=== PATIENT | female | born 1975 | race Caucasian/White ===

== ENCOUNTER 2023-07-02 20:46 | Inpatient (IN) | payer OTHER ==
[~2023-07-02] VITALS: Ht 175.3 cm; Wt 172.4 kg
[2023-07-02 20:50] VITALS: BP 169/89; PULSE 115; RESP 17; TEMP 97.9; O2SAT 98
[2023-07-02] MEDS ORDERED: cefTRIAXone 1,000 MG in DEXT 5% MINI-BAG PLUS 50 ML IV ONE (23:05)
[2023-07-02] MEDS ORDERED: NACL 0.9% 1,000 ML IV SCH (23:05)
[2023-07-02] MEDS ORDERED: KETOROLAC 30 MG/ML VIAL IVP ONE (23:10)
[2023-07-02] MEDS ORDERED: cefTRIAXone 1,000 MG VIAL ONE (23:42)
[2023-07-02 23:57] LABS: BASOPHILS # (AUTO) 0.1 K/uL (0.00-0.22); BASOPHILS % (AUTO) 0.6 % (0.0-2.0); EOSINOPHILS % (AUTO) 0.2 % (0.0-4.0); HEMATOCRIT 44.2 % (36-48); HEMOGLOBIN 15.1 g/dL (12.0-16.0); LYMPHOCYTES # (AUTO) 1.9 K/uL (2.5-16.5); LYMPHOCYTES % (AUTO) 10.5 % (20.5-51.1); MEAN CORPUSCULAR HEMOGLOBIN 29 pg (27-31); MEAN CORPUSCULAR HGB CONC 34 g/dL (33-37); MONOCYTES # (AUTO) 0.9 K/uL (0.8-1.0); MONOCYTES % (AUTO) 5.1 % (1.7-9.3); NEUTROPHILS # (AUTO) 14.8 K/uL (1.8-7.7); NEUTROPHILS % (AUTO) 83.6 % (42.2-75.2); PLATELET COUNT (AUTO) 293 K/uL (140-450); RED BLOOD CELL COUNT(AUTO) 5.13 MIL/uL (4.20-5.40); RED CELL DISTRIBUTION WIDTH 13.5 % (11.6-13.7); WHITE BLOOD COUNT (AUTO) 17.7 K/uL (4.8-10.8)
[2023-07-03 00:31] LABS: APPEARANCE,URINE CLEAR (CLEAR); BILIRUBIN,URINE NEGATIVE (NEGATIVE); BLOOD, URINE TRACE-I (NEGATIVE); COLOR,URINE YELLOW (YELLOW); LEUKOCYTE ESTERASE ,URINE NEGATIVE (NEGATIVE); NITRITE, URINE NEGATIVE (NEGATIVE); PH,URINE 5.5 (5.0-9.0); PROTEIN,URINE NEGATIVE (NEGATIVE); UGLUCOSE 3+ (NEGATIVE); UROBILINOGEN,URINE 0.2 EU/dL (0.2 - 1)
[2023-07-03 00:36] LABS: ALBUMIN 2.7 g/dL (3.4-5.0); ANION GAP 14.6 (8-16); CALCIUM 8.4 mg/dL (8.5-10.1); CARBON DIOXIDE 26.3 mmol/L (21-32); CREATININE 0.6 mg/dL (0.6-1.3); POTASSIUM 3.9 mmol/L (3.5-5.1); TOTAL BILIRUBIN 0.6 mg/dL (0.0-1.0); TOTAL PROTEIN, SERUM 7.5 g/dL (6.4-8.2)
[2023-07-03 00:42] LABS: BACTERIA,URINE OCCASSIONAL /HPF (None Seen); RBC,URINE 0-5 /HPF (0-5); WBC,URINE 0-5 /HPF (0-5); YEAST,URINE Moderate /HPF (None Seen)
[2023-07-03 00:44] LABS: LACTIC ACID 1.3 mmol/L (0.4-2.0)
[2023-07-03 00:46] VITALS: O2SAT 98
[2023-07-03 02:42] VITALS: O2SAT 98
[2023-07-03] MEDS ORDERED: MORPHINE SULFATE 4 MG/ML SYR IVP ONE (03:45)
[2023-07-03] MEDS ORDERED: ACETAMINOPHEN EXTRA STRENGTH 500 MG TAB PO ONE (03:50)
[2023-07-03] MEDS ORDERED: CEPH500C16 PO (08:01)
[2023-07-03] MEDS ORDERED: METF-346 PO (08:15)
[2023-07-03] MEDS ORDERED: GLIP5TER PO (08:18)
[2023-07-03] MEDS ORDERED: CHLO25TA33 PO (08:19)
[2023-07-03] MEDS ORDERED: ATEN25TA7 PO (08:20)
[2023-07-03] MEDS ORDERED: LORazepam 2 MG/ML VIAL IVP PRN (09:20)
[2023-07-03] MEDS ORDERED: ONDANSETRON 4 MG/2 ML VIAL IVP PRN (09:20)
[2023-07-03] MEDS ORDERED: DEXTROSE 50% 50 ML SYR IVP PRN (09:20)
[2023-07-03] MEDS ORDERED: ACETAMINOPHEN EXTRA STRENGTH 500 MG TAB PO PRN (09:25)
[2023-07-03] MEDS: ACETAMINOPHEN 325 MG TAB PO PRN (09:44)
[2023-07-03 10:00] VITALS: RESP 20; O2SAT 100; O2SAT 97
[2023-07-03 12:00] VITALS: BP 153/72; PULSE 101; RESP 20; TEMP 98.7; O2SAT 99
[2023-07-03] MEDS: BLOOD GLUCOSE MONITORING 1 DEV DEV FS SCH ×3 (12:30→20:36)
[2023-07-03] MEDS ORDERED: hydrALAZINE 20 MG/ML VIAL IVP PRN ×2 (13:10→15:35)
[2023-07-03] MEDS: INSULIN LISPRO SLIDING SCALE 100 UNITS/ML VIAL SUBQ PRN ×3 (13:17→20:42)
[2023-07-03] MEDS: HYDROcodone/APAP 5/325 MG 1 TAB TAB PO PRN ×3 (13:20→22:02)
[2023-07-03 16:00] VITALS: BP 152/72; PULSE 89; RESP 20; TEMP 98; O2SAT 100
[2023-07-03 20:00] VITALS: BP 158/81; PULSE 94; RESP 18; TEMP 97.4; O2SAT 96
[2023-07-03] MEDS ORDERED: VANCOMYCIN PER PHARMACY MC PRN (20:15)
[2023-07-03] MEDS: glipiZIDE ER 5 MG TABER PO SCH (20:37)
[2023-07-03] MEDS ORDERED: VANCOMYCIN 1GM/DEXT 5% PREMIX 400 ML IV ONE (21:40)
[2023-07-03] MEDS ORDERED: VANCOMYCIN 1,000 MG VIAL ONE (22:06)
[2023-07-03] MEDS ORDERED: VANCOMYCIN 1GM/DEXT 5% PREMIX 200 ML IV ONE (23:00)
[2023-07-04] MEDS ORDERED: VANCOMYCIN 1GM/DEXT 5% PREMIX 200 ML IV ONE
[2023-07-04] MEDS ORDERED: VANCOMYCIN 1,000 MG VIAL ONE (00:24)
[2023-07-04] MEDS: HYDROcodone/APAP 5/325 MG 1 TAB TAB PO PRN ×3 (02:50→11:12)
[2023-07-04] MEDS: BLOOD GLUCOSE MONITORING 1 DEV DEV FS SCH ×4 (06:30→21:07)
[2023-07-04] MEDS: INSULIN LISPRO SLIDING SCALE 100 UNITS/ML VIAL SUBQ PRN ×4 (06:32→21:10)
[2023-07-04 07:01] LABS: BASOPHILS % (AUTO) 0.4 % (0.0-2.0); EOSINOPHILS # (AUTO) 0.1 K/uL (0-0.4); EOSINOPHILS % (AUTO) 0.6 % (0.0-4.0); HEMATOCRIT 39.9 % (36-48); HEMOGLOBIN 13.6 g/dL (12.0-16.0); LYMPHOCYTES # (AUTO) 2.3 K/uL (2.5-16.5); LYMPHOCYTES % (AUTO) 22.1 % (20.5-51.1); MEAN CORPUSCULAR HEMOGLOBIN 29 pg (27-31); MEAN CORPUSCULAR HGB CONC 34 g/dL (33-37); MEAN CORPUSCULAR VOLUME 85.6 fL (80-94); MONOCYTES # (AUTO) 0.8 K/uL (0.8-1.0); MONOCYTES % (AUTO) 7.2 % (1.7-9.3); NEUTROPHILS # (AUTO) 7.3 K/uL (1.8-7.7); NEUTROPHILS % (AUTO) 69.7 % (42.2-75.2); PLATELET COUNT (AUTO) 261 K/uL (140-450); RED BLOOD CELL COUNT(AUTO) 4.66 MIL/uL (4.20-5.40); RED CELL DISTRIBUTION WIDTH 13.2 % (11.6-13.7); WHITE BLOOD COUNT (AUTO) 10.4 K/uL (4.8-10.8)
[2023-07-04 07:17] LABS: ANION GAP 12.2 (8-16); CALCIUM 7.9 mg/dL (8.5-10.1); CARBON DIOXIDE 27.9 mmol/L (21-32); CREATININE 0.5 mg/dL (0.6-1.3); POTASSIUM 3.1 mmol/L (3.5-5.1)
[2023-07-04 08:00] VITALS: BP 142/75; PULSE 87; RESP 18; RESP 20; TEMP 97.9; O2SAT 99
[2023-07-04] MEDS: metFORMIN 500 MG TAB PO SCH (08:40)
[2023-07-04] MEDS: atenoloL 25 MG TAB PO SCH (08:40)
[2023-07-04] MEDS: CHLORTHALIDONE 25MG TAB PO SCH (08:41)
[2023-07-04] MEDS ORDERED: NON-FORMULARY ITEM (Chlorthalidone 1 TAB) PO SCH (09:00)
[2023-07-04] MEDS: VANCOMYCIN 1,500 MG in NACL 0.9% 500 ML IV SCH ×2 (10:36→18:26)
[2023-07-04] MEDS ORDERED: oxyCODONE/APAP 5/325 MG 1 TAB TAB PO PRN (12:25)
[2023-07-04] MEDS ORDERED: POTASSIUM CHLORIDE 10 MEQ TABER PO SCH (13:00)
[2023-07-04 16:00] VITALS: BP 138/65; PULSE 74; RESP 20; TEMP 98.1; O2SAT 99
[2023-07-04] MEDS ORDERED: oxyCODONE/APAP 5/325 MG 1 TAB TAB ONE (16:36)
[2023-07-04 20:00] VITALS: PULSE 75; RESP 16; O2SAT 96
[2023-07-04] MEDS: glipiZIDE ER 5 MG TABER PO SCH (21:06)
[2023-07-04] MEDS: oxyCODONE/APAP 5/325 MG 1 TAB TAB PO PRN (23:45)
[2023-07-05] VITALS: BP 152/71; PULSE 75; RESP 16; TEMP 97; O2SAT 96
[2023-07-05] MEDS: VANCOMYCIN 1,500 MG in NACL 0.9% 500 ML IV SCH ×4 (01:10→23:18)
[2023-07-05] MEDS: oxyCODONE/APAP 5/325 MG 1 TAB TAB PO PRN (05:48)
[2023-07-05] MEDS: BLOOD GLUCOSE MONITORING 1 DEV DEV FS SCH ×4 (06:36→20:27)
[2023-07-05] MEDS: INSULIN LISPRO SLIDING SCALE 100 UNITS/ML VIAL SUBQ PRN ×4 (06:41→20:29)
[2023-07-05 07:01] LABS: ALBUMIN 2.3 g/dL (3.4-5.0); ANION GAP 11.8 (8-16); CALCIUM 8.2 mg/dL (8.5-10.1); CARBON DIOXIDE 29.7 mmol/L (21-32); CREATININE 0.5 mg/dL (0.6-1.3); POTASSIUM 3.5 mmol/L (3.5-5.1); TOTAL BILIRUBIN 0.3 mg/dL (0.0-1.0); TOTAL PROTEIN, SERUM 6.7 g/dL (6.4-8.2)
[2023-07-05 08:00] VITALS: BP 146/76; PULSE 80; RESP 20; TEMP 97.6; O2SAT 96
[2023-07-05] MEDS: CHLORTHALIDONE 25MG TAB PO SCH (09:00)
[2023-07-05 09:15] VITALS: PULSE 72; RESP 19; O2SAT 99
[2023-07-05] MEDS ORDERED: ACETAMINOPHEN 100 ML IV ONE (09:20)
[2023-07-05] MEDS ORDERED: MIDAZOLAM 2 MG/2 ML VIAL ONE ×2 (09:21→09:30)
[2023-07-05] MEDS ORDERED: fentaNYL citrate 0.05 MG/ML VIAL ONE (09:21)
[2023-07-05] MEDS ORDERED: LIDOCAINE/EPI MPF 1%1:200000 30 ML VIAL INJ ONE (09:25)
[2023-07-05] MEDS ORDERED: BUPIVACAINE MPF 0.25% 10 ML VIAL INJ ONE (09:25)
[2023-07-05] MEDS ORDERED: fentaNYL citrate 0.05 MG/ML - 50mL vial IV ONE (09:30)
[2023-07-05] MEDS ORDERED: ONDANSETRON 4 MG/2 ML VIAL ONE (09:30)
[2023-07-05] MEDS ORDERED: VANCOMYCIN 1,000 MG VIAL ONE (09:30)
[2023-07-05] MEDS ORDERED: SUCCINYLCHOLINE CHLORIDE 200 MG/10 ML VIAL IVP ONE (09:30)
[2023-07-05] MEDS ORDERED: SEVOFLURANE 250 ML BTL INH ONE (09:30)
[2023-07-05] MEDS ORDERED: HYDROmorphone 1 MG/ML AMP IVP PRN (10:05)
[2023-07-05] MEDS ORDERED: MORPHINE SULFATE 4 MG/ML SYR IV PRN (10:05)
[2023-07-05] MEDS: metFORMIN 500 MG TAB PO SCH (11:21)
[2023-07-05 11:23] LABS: BASOPHILS % (AUTO) 0.4 % (0.0-2.0); EOSINOPHILS # (AUTO) 0.1 K/uL (0-0.4); EOSINOPHILS % (AUTO) 0.7 % (0.0-4.0); HEMATOCRIT 42.1 % (36-48); HEMOGLOBIN 14.6 g/dL (12.0-16.0); LYMPHOCYTES # (AUTO) 2.5 K/uL (2.5-16.5); LYMPHOCYTES % (AUTO) 23.4 % (20.5-51.1); MEAN CORPUSCULAR HEMOGLOBIN 30 pg (27-31); MEAN CORPUSCULAR HGB CONC 35 g/dL (33-37); MEAN CORPUSCULAR VOLUME 86.2 fL (80-94); MONOCYTES # (AUTO) 0.7 K/uL (0.8-1.0); MONOCYTES % (AUTO) 6.4 % (1.7-9.3); NEUTROPHILS # (AUTO) 7.3 K/uL (1.8-7.7); NEUTROPHILS % (AUTO) 69.1 % (42.2-75.2); PLATELET COUNT (AUTO) 339 K/uL (140-450); RED BLOOD CELL COUNT(AUTO) 4.89 MIL/uL (4.20-5.40); RED CELL DISTRIBUTION WIDTH 13.4 % (11.6-13.7); WHITE BLOOD COUNT (AUTO) 10.6 K/uL (4.8-10.8)
[2023-07-05] MEDS: atenoloL 25 MG TAB PO SCH (11:25)
[2023-07-05 11:31] LABS: ANION GAP 10.2 (8-16); CALCIUM 8.1 mg/dL (8.5-10.1); CARBON DIOXIDE 30.2 mmol/L (21-32); CREATININE 0.6 mg/dL (0.6-1.3); POTASSIUM 3.4 mmol/L (3.5-5.1)
[2023-07-05 16:00] VITALS: BP 127/72; PULSE 73; RESP 20; TEMP 97.5; O2SAT 96
[2023-07-05] MEDS ORDERED: POTASSIUM CHLORIDE 10 MEQ TABER PO ONE ×2 (19:05→20:25)
[2023-07-05 20:00] VITALS: BP 121/67; PULSE 77; RESP 19; TEMP 97.8; O2SAT 98
[2023-07-05] MEDS: glipiZIDE ER 5 MG TABER PO SCH (20:27)
[2023-07-05] MEDS: DOCUSATE SODIUM 100 MG GELCAP PO SCH (20:27)
[2023-07-06] MEDS: ACETAMINOPHEN 325 MG TAB PO PRN ×2 (00:22→10:06)
[2023-07-06 04:00] VITALS: BP 133/61; PULSE 78; RESP 20; TEMP 96.8; O2SAT 99
[2023-07-06] MEDS: VANCOMYCIN 1,500 MG in NACL 0.9% 500 ML IV SCH (05:02)
[2023-07-06] MEDS: INSULIN LISPRO SLIDING SCALE 100 UNITS/ML VIAL SUBQ PRN ×4 (06:33→20:49)
[2023-07-06] MEDS: BLOOD GLUCOSE MONITORING 1 DEV DEV FS SCH ×4 (06:34→20:25)
[2023-07-06 06:43] LABS: BASOPHILS % (AUTO) 0.3 % (0.0-2.0); EOSINOPHILS # (AUTO) 0.1 K/uL (0-0.4); EOSINOPHILS % (AUTO) 1.1 % (0.0-4.0); HEMATOCRIT 40.1 % (36-48); HEMOGLOBIN 13.9 g/dL (12.0-16.0); LYMPHOCYTES # (AUTO) 2.2 K/uL (2.5-16.5); LYMPHOCYTES % (AUTO) 30.5 % (20.5-51.1); MEAN CORPUSCULAR HEMOGLOBIN 30 pg (27-31); MEAN CORPUSCULAR HGB CONC 35 g/dL (33-37); MEAN CORPUSCULAR VOLUME 85.6 fL (80-94); MONOCYTES # (AUTO) 0.6 K/uL (0.8-1.0); MONOCYTES % (AUTO) 8.8 % (1.7-9.3); NEUTROPHILS # (AUTO) 4.3 K/uL (1.8-7.7); NEUTROPHILS % (AUTO) 59.3 % (42.2-75.2); PLATELET COUNT (AUTO) 311 K/uL (140-450); RED BLOOD CELL COUNT(AUTO) 4.68 MIL/uL (4.20-5.40); RED CELL DISTRIBUTION WIDTH 13.2 % (11.6-13.7); WHITE BLOOD COUNT (AUTO) 7.3 K/uL (4.8-10.8)
[2023-07-06 07:23] LABS: ANION GAP 8.4 (8-16); CALCIUM 8.4 mg/dL (8.5-10.1); CARBON DIOXIDE 31.7 mmol/L (21-32); CREATININE 0.5 mg/dL (0.6-1.3); POTASSIUM 4.1 mmol/L (3.5-5.1)
[2023-07-06 07:54] VITALS: PULSE 69; RESP 19; O2SAT 100
[2023-07-06] MEDS: metFORMIN 500 MG TAB PO SCH (09:04)
[2023-07-06] MEDS: atenoloL 25 MG TAB PO SCH (09:04)
[2023-07-06] MEDS: CHLORTHALIDONE 25MG TAB PO SCH (09:04)
[2023-07-06] MEDS: DOCUSATE SODIUM 100 MG GELCAP PO SCH ×2 (09:04→20:26)
[2023-07-06] MEDS: HYDROcodone/APAP 5/325 MG 1 TAB TAB PO PRN (15:40)
[2023-07-06 16:00] VITALS: BP 193/80; PULSE 82; RESP 18; TEMP 96.8; O2SAT 100
[2023-07-06 20:00] VITALS: PULSE 75; RESP 18; O2SAT 98
[2023-07-06] MEDS: glipiZIDE ER 5 MG TABER PO SCH (20:26)
[2023-07-07] VITALS: BP 153/75; PULSE 83; RESP 15; TEMP 97.4; O2SAT 97
[2023-07-07 06:26] LABS: BASOPHILS % (AUTO) 0.4 % (0.0-2.0); EOSINOPHILS # (AUTO) 0.1 K/uL (0-0.4); HEMATOCRIT 40.8 % (36-48); LYMPHOCYTES # (AUTO) 2.3 K/uL (2.5-16.5); LYMPHOCYTES % (AUTO) 29.8 % (20.5-51.1); MEAN CORPUSCULAR HEMOGLOBIN 30 pg (27-31); MEAN CORPUSCULAR HGB CONC 34 g/dL (33-37); MEAN CORPUSCULAR VOLUME 85.9 fL (80-94); MONOCYTES # (AUTO) 0.6 K/uL (0.8-1.0); NEUTROPHILS # (AUTO) 4.7 K/uL (1.8-7.7); NEUTROPHILS % (AUTO) 60.8 % (42.2-75.2); PLATELET COUNT (AUTO) 291 K/uL (140-450); RED BLOOD CELL COUNT(AUTO) 4.75 MIL/uL (4.20-5.40); RED CELL DISTRIBUTION WIDTH 13.5 % (11.6-13.7); WHITE BLOOD COUNT (AUTO) 7.7 K/uL (4.8-10.8)
[2023-07-07] MEDS: INSULIN LISPRO SLIDING SCALE 100 UNITS/ML VIAL SUBQ PRN ×4 (06:29→20:16)
[2023-07-07] MEDS: BLOOD GLUCOSE MONITORING 1 DEV DEV FS SCH ×4 (06:39→20:16)
[2023-07-07 06:50] LABS: ANION GAP 10.4 (8-16); CALCIUM 8.5 mg/dL (8.5-10.1); CARBON DIOXIDE 31.5 mmol/L (21-32); CREATININE 0.4 mg/dL (0.6-1.3); POTASSIUM 3.9 mmol/L (3.5-5.1)
[2023-07-07 08:00] VITALS: BP 152/94; PULSE 94; RESP 18; TEMP 97.1; O2SAT 96
[2023-07-07] MEDS: DOCUSATE SODIUM 100 MG GELCAP PO SCH ×2 (09:00→20:16)
[2023-07-07] MEDS ORDERED: VANCOMYCIN 1,500 MG in DEXTROSE 5% 500 ML IV SCH (09:00)
[2023-07-07] MEDS: atenoloL 25 MG TAB PO SCH (09:00)
[2023-07-07] MEDS: metFORMIN 500 MG TAB PO SCH (09:43)
[2023-07-07] MEDS: CHLORTHALIDONE 25MG TAB PO SCH (09:44)
[2023-07-07] MEDS: VANCOMYCIN 1,500 MG in NACL 0.9% 500 ML IV SCH ×2 (09:45→17:00)
[2023-07-07] MEDS ORDERED: SKINTEGRITY HYDROGEL TP PRN (10:15)
[2023-07-07 16:00] VITALS: BP 158/88; PULSE 89; RESP 18; TEMP 97.1; O2SAT 97
[2023-07-07 20:00] VITALS: BP 152/94; PULSE 84; RESP 18; TEMP 98.5; O2SAT 96
[2023-07-07] MEDS: ACETAMINOPHEN 325 MG TAB PO PRN (20:06)
[2023-07-07] MEDS: glipiZIDE ER 5 MG TABER PO SCH (20:09)
[2023-07-08] MEDS ORDERED: atenoloL 25 MG TAB PO ONE (00:16)
[2023-07-08] MEDS: VANCOMYCIN 1,500 MG in NACL 0.9% 500 ML IV SCH ×2 (00:52→09:00)
[2023-07-08 04:00] VITALS: BP 156/84; PULSE 78; RESP 18; TEMP 98.4; O2SAT 95
[2023-07-08] MEDS: BLOOD GLUCOSE MONITORING 1 DEV DEV FS SCH ×2 (06:36→11:30)
[2023-07-08] MEDS: INSULIN LISPRO SLIDING SCALE 100 UNITS/ML VIAL SUBQ PRN (06:36)
[2023-07-08 08:00] VITALS: PULSE 77; RESP 19; O2SAT 99
[2023-07-08] MEDS: metFORMIN 500 MG TAB PO SCH (08:39)
[2023-07-08] MEDS: CHLORTHALIDONE 25MG TAB PO SCH (08:58)
[2023-07-08] MEDS: DOCUSATE SODIUM 100 MG GELCAP PO SCH (09:00)
[2023-07-08] MEDS ORDERED: SKINTEGRITY HYDROGEL TP SCH (09:00)
[2023-07-08 13:54] VITALS: BP 152/70; PULSE 77; RESP 19; TEMP 97.8
[2023-07-08] MEDS ORDERED: SULF-59 PO ×2 (16:16→17:54)
[2023-07-08] MEDS ORDERED: atenoloL 25 MG TAB PO SCH (20:00)
== END 2023-07-08 16:50 | disposition home or self-care (01) | DRG 571 ==
LOC: MED 20:46 → MTU 07-03 05:32
PROVIDERS: ADMIT Preventive Medicine Preventive Medicine/Occupational Environmental Medicine; ATTEND Preventive Medicine Preventive Medicine/Occupational Environmental Medicine
PROC: 0JB10ZZ Excision of Face Subcutaneous Tissue and Fascia, Open Approach (ICD-10-PCS; principal; 2023-07-05 09:30)
DX: L03.211 Cellulitis of face (principal); L02.01 Cutaneous abscess of face; L03.115 Cellulitis of right lower limb; Z68.43 Body mass index [BMI] 50.0-59.9, adult; I10 Essential (primary) hypertension; E88.09 Other disorders of plasma-protein metabolism, not elsewhere classified; E83.51 Hypocalcemia; E11.65 Type 2 diabetes mellitus with hyperglycemia; M27.2 Inflammatory conditions of jaws; E66.01 Morbid (severe) obesity due to excess calories; D72.829 Elevated white blood cell count, unspecified; A49.01 Methicillin susceptible Staphylococcus aureus infection, unspecified site
CPT/HCPCS: 36415; 70487; 71045; 80048; 80053; 80202; 81001; 82948; 83605; 83880; 84484; 85025; 85651; 86140; 87040; 87070; 87075; 87081; 87086; 87186; 87205; 93005; 96361; 96365; 96375; 99285; A6248; J0330; J0360; J0696; J1815; J1885; J2001; J2250; J2270; J2405; J3010; J3370; J3490; J7030; J7060; Q0163